=== PATIENT | male | born 1940 | race African-American/Black ===

== ENCOUNTER 2023-07-09 17:47 | Observation (INO) | payer OTHER ==
[2023-07-09 20:13] LABS: BASO % 1.3 % (0-2.0); EOS % 7.2 % (0-4.5); HEMOGLOBIN 12.9 GM/dL (11.7-16.9); LYMPH % 43.8 % (8-40); MCHC 32.3 g/dl (32.0-35.9); MEAN PLT VOLUME 7.4 fl (7.5-11.1); MONO % 15.1 % (3.8-10.2); NEUT % 32.6 % (42.8-82.8); PLATELET COUNT 227 10^3/uL (134-434); RBC 4.45 M/mm3 (4.00-5.60); RDW 13.8 % (11.9-15.9); WHITE BLOOD COUNT 4.1 K/mm3 (4.0-10.0)
[2023-07-09 20:36] LABS: POTASSIUM 4.4 mmol/L (3.5-5.1)
[2023-07-09 20:40] LABS: ALBUMIN 3.9 g/dl (3.4-5.0); CALCIUM 8.6 mg/dL (8.5-10.1); MAGNESIUM 2.2 mg/dL (1.8-2.4)
[2023-07-09 20:43] LABS: CREATININE 2.3 mg/dL (0.55-1.3)
[2023-07-09 20:44] LABS: BILIRUBIN,TOTAL 0.7 mg/dL (0.2-1)
[2023-07-09 20:45] LABS: TOT PROT 9.1 g/dl (6.4-8.2)
[2023-07-09] MEDS ORDERED: SODIUM CHLORIDE 0.9% 500 ML INFUS.BAG IV ONE (20:56)
[2023-07-10] MEDS ORDERED: SODIUM CHLORIDE 1,000 ML IV SCH (01:30)
[2023-07-10 03:28] VITALS: RESP 20; BMI 23.2
[2023-07-10] MEDS: HEPARIN NA (PORCINE) 5,000 UNITS/ML 1ML VIAL SQ SCH ×2 (06:10→13:02)
[2023-07-10] MEDS: busPIRone HCL 5 MG TABLET PO SCH ×2 (06:11→13:02)
[2023-07-10] MEDS: INSULIN SLIDING SCALE (NOVOLOG) 1 VIAL SQ SCH ×2 (06:11→11:16)
[2023-07-10 07:57] LABS: HEMATOCRIT 36.4 % (35.4-49); HEMOGLOBIN 11.8 GM/dL (11.7-16.9); MCH 29.1 pg (25.7-33.7); MCHC 32.3 g/dl (32.0-35.9); MEAN CELL VOLUME 90.1 fl (80-96); PLATELET COUNT 198 10^3/uL (134-434); RBC 4.04 M/mm3 (4.00-5.60); RDW 13.8 % (11.9-15.9); WHITE BLOOD COUNT 4.2 K/mm3 (4.0-10.0)
[2023-07-10 08:13] LABS: POTASSIUM 4.6 mmol/L (3.5-5.1)
[2023-07-10 08:31] LABS: CALCIUM 8.4 mg/dL (8.5-10.1)
[2023-07-10 08:32] LABS: BLOOD UREA NITROGEN 32.1 mg/dL (7-18)
[2023-07-10 09:31] LABS: ANISOCYTOSIS 2+; MACROCYTOSIS 0
[2023-07-10] MEDS ORDERED: amLODIPine BESYLATE 10 MG TABLET (FP) PO SCH (10:00)
[2023-07-10] MEDS ORDERED: CARVEDILOL 12.5 MG TABLET (FP) PO SCH (10:00)
[2023-07-10 10:12] VITALS: PULSE 73
[2023-07-10 15:23] VITALS: BP 151/80; TEMP 97.1
[2023-07-10] MEDS ORDERED: ATORVASTATIN CA 40 MG TABLET (FP) PO SCH (22:00)
== END 2023-07-10 15:28 | disposition home or self-care (01) ==
LOC: JER 17:47 → JERBED 22:50 → J4W 07-10 02:52
PROVIDERS: ADMIT Internal Medicine; ATTEND Internal Medicine
PROC: 3E023GC Introduction of Other Therapeutic Substance into Muscle, Percutaneous Approach (ICD-10-PCS; principal; 2023-07-09)
PROC: 3E0337Z Introduction of Electrolytic and Water Balance Substance into Peripheral Vein, Percutaneous Approach (ICD-10-PCS; 2023-07-09)
PROC: 3E023GC Introduction of Other Therapeutic Substance into Muscle, Percutaneous Approach (ICD-10-PCS; 2023-07-09)
PROC: 3E0337Z Introduction of Electrolytic and Water Balance Substance into Peripheral Vein, Percutaneous Approach (ICD-10-PCS; 2023-07-09)
DX: E11.9 Type 2 diabetes mellitus without complications (principal); R07.89 Other chest pain; F41.9 Anxiety disorder, unspecified; F41.0 Panic disorder [episodic paroxysmal anxiety]; I11.0 Hypertensive heart disease with heart failure; I50.9 Heart failure, unspecified; Z88.0 Allergy status to penicillin
CPT/HCPCS: 36415; 71045-TC-FY; 76775-TC; 80048; 80053; 82962; 83735; 84484; 85025; 85379; 86308; 93005; 93010; 93306-TC; 96360; 96372; 99285-25; G0378; J1644